=== PATIENT | male | born 1935 | race Caucasian/White ===

== ENCOUNTER 2017-11-12 10:45 | Inpatient (IN) | payer MEDICARE, MEDICAID, SELFPAY ==
[2017-11-12] VITALS (18 sets, daily range): BP systolic 106–129; BP diastolic 53–72; PULSE 91–124; RESP 12–89; TEMP 36.8–37.2; O2SAT 76–99; BMI 36.3; BMI 34.7; BMI 34.8
--- NOTE | 2017-11-12 10:56 | EKG12_ITS ---
Test Reason : SOB Blood Pressure : / mmHG Vent. Rate : 106 BPM Atrial Rate : 102 BPM P-R Int : 000 ms QRS Dur : 166 ms QT Int : 382 ms P-R-T Axes : 000 -27 096 degrees QTc Int : 507 ms Atrial fibrillation Left bundle branch block Abnormal ECG Confirmed by GARY GUTIERREZ, KRANTHI ([id number]), film editor JACKSON PAULA ([id number]) on 11/14/2017 1:40:23 PM Referred By: RAJAN Confirmed By:KRANTHI VEGA MD
--- NOTE | 2017-11-12 11:15 | ED.VISSUMM ---
- ER Visit Summary Date of Service: 11/12/17 Chief Complaint: [] Cough shortness of breath for a few days low pulse ox at senior living History of Present Illness: The patient is a 82 M [] history of COPD on home O2 3 L despite using increasing home oxygen his pulse ox remained about 83% persistent cough wheezing he was brought to the emergency room by EMS the patient reports just being generally tired harsh coughing he believes he did have a flu vaccination denies chest pain or abdominal pain or extremity pain he is DNR cc per the records from senior living Physical Examination: [] On a nonrebreather now his pulse ox is 96% he is awake and alert answering questions appropriately has diminished breath sounds with wheezing all areas the heart tones are distant abdomen is obese but soft upper lower extremities unremarkable he has 2-3+ edema bilaterally that is old he is moving all 4 extremities he states he has no specific complaints other than fatigue there is no signs of cardiopulmonary distress or failure, he is coughing up thick yellow mucus he will be sent for sputum culture Test Results: [] Emergency Department Course and Treatment: [] Any labs aerosols flu sputum Patient studies are generally unremarkable see those reports, however the chest x-ray shows congestive failure with right upper lobe infiltrate that per radiology is improved, his BNP is about 1000 troponin negative, there is no reported history for recent pneumonia he is not on antibiotics from [facility], On reevaluation he remains awake and alert there is no signs of cardiopulmonary arrest or failure I spoke with hospitalist they will be by to see him shortly for admission we have started IV antibiotics Treatment Plan: [] Disposition: [] Admit stable Impression: [] Right upper lobe pneumonia senior living acquired, congestive heart failure, hypoxia on room air, multiple medical problems see chart, DNR cc per senior living records This note was generated with [employer] dictation software. It may contain incorrect words, spelling, and punctuation that were not noted in review of the chart prior to signing ED Disposition - Plan for ED Patient: Chief Complaint: Shortness of Breath Referrals: Florentin Mancia MD [Primary Care Provider] -
[2017-11-12] MEDS: Ipratropium/Albuterol Sulfate 3 ML AMPUL.NEB INHALATION ×2 (11:35→19:45)
[2017-11-12 11:40] LABS: Absolute Neutrophil Count 4.6 X10^3/uL (2.0-7.7); Basophil# 0.02 X10^3/uL; Basophil% 0.3 % (0-1); Eosinophil# 0.05 X10^3/uL; Eosinophils% 0.8 % (0-5); Hematocrit 35.3 % (40-54); Hemoglobin 10.7 g/dl (13.0-16.5); Lymphocyte % 9.8 % (19-41); Mean Corp Hgb Conc 30.3 g/gl (32-36); Mean Corpuscular Hgb 27.9 pg (27.0-32.0); Mean Corpuscular Volume 92.2 fL (80-94); Mean Platelet Vol. 8.8 fl (6.2-12.0); Monocyte# 0.87 X10^3/uL; Monocyte% 14.1 % (0-10); Neutrophil # 4.56 X10^3/uL (2.7-7.7); Neutrophil % 74.2 % (47-70); Platelet Count 158 K/mm3 (150-450); RBC Distribution Width CV 18.7 % (11.6-14.6); RBC Distribution Width SD 61.1 fl (35.1-43.9); Red Blood Count 3.83 M/mm3 (4.6-6.2); White Blood Count 6.2 K/mm3 (4.4-11.0)
[2017-11-12 11:44] LABS: Differential Indicated SCAN CRITERIA MET; POSITIVE COUNT NO; POSITIVE DIFFERENTIAL YES; POSITIVE MORPHOLOGY NO
[2017-11-12 11:47] LABS: Anion Gap 5 (5-15); BUN 38 mg/dL (7-18); BUN/Creat Ratio 21.6 RATIO (10-20); Calcium,Total 8.6 mg/dL (8.5-10.1); Chloride 100 mmol/L (98-107); Creatinine, Serum 1.76 mg/dL (0.70-1.30); EST Glomerular Filtration Rate 40 mL/min (>60); Est Glom Filt Rate - Afr Amer 48 mL/min (>60); Estimated Creatinine Clearance 40.01 ml/min; Glucose 119 mg/dL (70-110); Potassium 5.1 mmol/L (3.5-5.1); Sodium Level 139 mmol/L (136-145)
[2017-11-12 12:06] LABS: BNP,B-Type NATRIURETIC PEPTIDE 1045.7 pg/mL (0-100)
[2017-11-12] MEDS: Albuterol 2.5 MG/3 ML VIAL.NEB. INHALATION (12:15)
[2017-11-12] MEDS: Piperacil/Tazobactam 3.375 GM/50 ML ML IV (12:26)
--- NOTE | 2017-11-12 12:54 | RAD_ITS ---
STUDY: X-RAY CHEST REASON FOR EXAM: Male, 82 years old. Shortness of breath TECHNIQUE: Single AP portable view of the chest. COMPARISON: Chest x-ray on September 13, 2017 FINDINGS: EKG leads are in place There is a right upper lobe infiltrate. There is pulmonary vascular congestion. There is no demonstrated pleural abnormality. There is moderate cardiac enlargement. Status post sternotomy. Normal mediastinum and kurt. Normal visualized pulmonary arteries. There is atherosclerotic calcification of the aortic arch with tortuosity. Normal visualized thoracic spine. Normal visualized ribs, clavicles, and shoulders. There is no demonstrated abnormality of the visualized soft tissue structures of the upper abdomen. RAD/Chest 1 View (Portable) IMPRESSION: Improved pulmonary edema. Right upper lobe infiltrate is less residual edema. Stable cardiomegaly. Electronically Signed: Darryl Menjivar MD, FACR at 13:12 EST , Service support ,
--- NOTE | 2017-11-12 13:57 | HP.PCM_ITS ---
Problem List (1) CHF (congestive heart failure) Status: Acute (2) Pneumonia Status: Acute (3) Right femoral fracture Status: Acute Qualifiers: (4) Primary osteoarthritis of right hip Status: Acute (5) History of right hip hemiarthroplasty Status: Chronic (6) Heart failure with preserved ejection fraction Status: Acute (7) Hyponatremia Status: Chronic (8) COPD (chronic obstructive pulmonary disease) Status: Acute Qualifiers: (9) Chronic combined systolic and diastolic CHF (congestive heart failure) Status: Chronic (10) Benign hypertension Status: Chronic (11) Generalized osteoarthritis Status: Chronic (12) Tobacco dependence syndrome Status: Chronic History of Present Illness Date of Admission: 11/12/17 Chief Complaint: Shortness of breath, hypoxia This is an 82-year-old male with past medical history of diastolic heart failure , COPD, obstructive sleep apnea, status post bioprosthetic aortic valve replacement, paroxysmal atrial fibrillation who currently resides at a local [facility] , he is a DNR CC. He was brought to the emergency room by EMS due to progressive shortness of breath, cough and hypoxia. He has done well well recently until about 2 days ago when he started having shortness of breath and coughing up thick yellow mucus . He denied any fever or chills.He remained hypoxic in the low 80s despite supplemental oxygen per nasal cannula, he was placed on a nonrebreather in the emergency room his pulse oximetry went up to 96 %. Patient is alert and oriented to time place and person and answered questions appropriately. In the emergency room, his influenza A and B test are negative, his chest x-ray showed congestive failure pattern and a right upper lobe infiltrate , his BNP is ~ 1000,his troponin is within normal limits. He was felt to have pneumonia and he was given IV Vancomycin and Zosyn , he was also given IV Lasix for congestive heart failure. Past Medical History Past Medical History (Chronic Problems): Chronic Problems History of right hip hemiarthroplasty (Chronic) Hyponatremia (Chronic) Left bundle branch block (Chronic) Paroxysmal atrial fibrillation (Chronic) Status post aortic valve replacement with bioprosthetic valve (Chronic) Chronic combined systolic and diastolic CHF (congestive heart failure) (Chronic) Coronary artery disease (Chronic) Benign hypertension (Chronic) Generalized osteoarthritis (Chronic) Tobacco dependence syndrome (Chronic) Allergies varenicline [From Chantix] Allergy (Verified 11/12/17 10:45) Other Home Medications: Ambulatory Orders Medication Instructions Recorded Amiodarone HCl [Cordarone] 200 mg PO DAILY 09/05/14 Aspirin [Aspirin, Baby] 81 mg PO DAILY@0800 09/05/14 Finasteride [Proscar] 5 mg PO DAILY 09/05/14 Tamsulosin HCl [Flomax] 0.8 mg PO QHS 09/05/14 Mirtazapine [Remeron] 15 mg PO QHS 03/18/17 Montelukast [Singulair] 10 mg PO QHS 03/18/17 Ferrous Sulfate [Iron] 325 mg PO DAILY #30 tablet 06/14/17 Glucerna Shake 120 ml PO 4X/DAY 07/25/17 Mag Hydrox/Al Hydrox/Simeth 30 ml PO Q6H PRN PRN udc 07/25/17 [Mylanta II] Carvedilol [Coreg (Beta Neyda)] 3.125 mg PO BID tablet 08/02/17 Docusate Sodium [Colace] 200 mg PO BID PRN PRN capsule 08/02/17 Losartan Potassium [Cozaar] 25 mg PO DAILY tablet 08/02/17 Potassium Chloride [K-Dur] 40 meq PO BIDCM tablet 08/02/17 Ammonium Lactate [Amlactin] 57 gm TOPICAL BID 09/12/17 Atorvastatin Calcium 80 mg PO QHS 09/12/17 Polyethylene Glycol 3350 17 gm PO DAILY 09/12/17 Prednisone 10 mg PO DAILY 09/13/17 BusPIRone [Buspar] 5 mg PO BID 11/12/17 Furosemide [Lasix] 80 mg PO BID@1000,1800 11/12/17 Pantoprazole Sodium [Protonix] 40 mg PO DAILY 11/12/17 Surgical History: appendectomy, pacemaker implantation, total knee arthroplasty , tonsillectomy, - - Aortic valve replacement with bioprosthetic valve. PCI and cardiac stenting. Psychiatric History: No pertinent psych hx Smoking Status: Former smoker - *Family History Maternal History Items: Hypertension Paternal History Items: No pertinent history Sibling History Items: Diabetes, Hypertension Review of Systems Comment: All Systems were reviewed with pertinent positives mentioned in the HPI above. VTE Information - Inpt Only VTE Present on Admission: No VTE Mechan Device Prophylaxis: SCD's VTE Pharm Prophylaxis ordered?: No - Physical Exam General: Alert, Oriented x3 Neck: Supple Lungs: No rales, Rales Cardiovascular: Normal S1, Normal S2 Abdomen: Bowel Sounds Present, Soft, Non Tender Extremities: Edema Neurological: Cranial nerves II-XII grossly intact, Motor Exam 5/5 strength throughout Psych/Mental Status: Normal Affect Vital Signs Temp Pulse Resp BP Pulse Ox 99.0 F 101 H 17 119/65 92 11/12/17 10:46 11/12/17 13:04 11/12/17 13:04 11/12/17 13:04 11/12/17 12:15 Oxygen Flow Rate 12 Oxygen Delivery Method Room Air Weight: 131.9 kg Body Mass Index (BMI) 36.3 Microbiology Past 72 Hours 11/12/17 11:40 Influenza Types A,B Direct FA (AI) - Final Mucosa - Nose Laboratory Tests Past 24 Hrs 11/12/17 11/12/17 11/12/17 11:11 11:11 11:11 WBC 6.2 RBC 3.83 L Hgb 10.7 L Hct 35.3 L MCV 92.2 MCH 27.9 MCHC 30.3 L RDW 18.7 H RDW Differential 61.1 H Plt Count 158 MPV 8.8 Immature Gran % (Auto) 0.800 Neut % (Auto) 74.2 H Lymph % (Auto) 9.8 L Crisp % (Auto) 14.1 H Eos % (Auto) 0.8 Baso % (Auto) 0.3 Absolute Neuts (auto) 4.6 Absolute Lymphs (auto) 0.60 L Total Counted Not Reportable Sodium 139 Potassium 5.1 Chloride 100 Carbon Dioxide 34.0 H Anion Gap 5 BUN 38 H Creatinine 1.76 H Estim Creat Clear Calc 40.01 Est GFR (MDRD) Af Amer 48 L Est GFR (MDRD) Non-Af 40 L BUN/Creatinine Ratio 21.6 H Glucose 119 H Calcium 8.6 Troponin I 0.05 B-Natriuretic Peptide 1045.7 H Assessment/Plan 1. Acute on chronic respiratory failure with hypoxia ; we will continue on supplemental oxygen per NC while he is awake and we will place him on BiPAP at at bedtime. 2. Presumptive healthcare associated pneumonia; the patient was initiated on IV vancomycin and Zosyn in the ED which we would continue. 3. acute Diastolic heart failure; will place him on IV Lasix. 4. Paroxysmal atrial fibrillation ; he remains in sinus rhythm, he is on Amiodarone. He is not on long-term anticoagulation due to falls. A decision was made to discontinue his anticoagulation about ~ 4months ago. 5. COPD exacerbation without acute exacerbation; continue on his bronchodilators as they are. 6. Status post bioprosthetic aortic valve replacement; his most recent echocardiogram showed a normal valve anatomy and function.. Code Visit Inpatient E&M: [id number] Init Hosp L3
[2017-11-12] MEDS: Furosemide 20 MG/2 ML VIAL IV (14:28)
[2017-11-12] MEDS: Menthol/Lanolin/Calamine/Znox 113 GM Tube 1 APPLIC TOPICAL (22:35)
[2017-11-12] MEDS: 0.9% NaCl Peripheral Flush Adult/Peds IV (22:37)
[2017-11-12] MEDS: Furosemide 40 MG/4 ML Vial IV (22:37)
[2017-11-13] VITALS (26 sets, daily range): BP systolic 80–126; BP diastolic 48–60; PULSE 107–122; RESP 12–30; TEMP 36.5–37.3; O2SAT 85–97
[2017-11-13] MEDS: Ipratropium/Albuterol Sulfate 3 ML AMPUL.NEB INHALATION ×2 (01:09→07:08)
--- NOTE | 2017-11-13 03:15 | CPS ---
pt returning low volumes and desaturations into the mid 80's on 70% FiO2. Oxygen increased to 100% to maintain an SpO2 of 90%. Pts breath sounds were diminished previously and now sounding very coarse. RN notified and ABG was recommended by [employer]. DR. Lowry paged and ABG and Lasix order were received. Blood gas showed critical results and PAP pressures and RR were increased per Dr. Lowry. IPAP increased to 26 and EPAP increased to 10 for larger pressure support. RR increased to 16. Repeat ABG in one hour per DR. Lowry.
[2017-11-13] MEDS: Furosemide 40 MG/4 ML Vial IV (03:37)
--- NOTE | 2017-11-13 05:21 | NURSING ---
This RN called Pt's daughter (POBalwinder) Chyna at this time to inform her of Pt's changes overnight. This RN advised to Chyna that she might like to come in to be with her father if Pt declines further. This RN asked Chyna if she would like to us to contact anyone else in the family. Chyna said she would call her brother.
[2017-11-13 05:41] LABS: Allen Test POS; Base Excess 8 mmol/L (-2 to +2); Bicarbonate 35.8 mmol/L (22-26); Blood Gas Specimen Type ART; EPAP 10; FI02 80; IPAP 26; PO2 75 mmHG (75-100); RR 16; SITE R Radial; SO2 90 % (95-99); Time Given 520; Total Carbon Dioxide 38 mmol/L; pCO2 90.1 mmHg (35-45); pH 7.21 (7.35-7.45)
[2017-11-13 06:29] LABS: Absolute Lymphocyte Count 0.39 X10^3/ul (0.83-4.51); Absolute Neutrophil Count 9.2 X10^3/uL (2.0-7.7); Basophil# 0.02 X10^3/uL; Basophil% 0.2 % (0-1); Hematocrit 40.2 % (40-54); Hemoglobin 11.8 g/dl (13.0-16.5); Lymphocyte # 0.39 X10^3/ul (4.0); Lymphocyte % 3.7 % (19-41); Mean Corp Hgb Conc 29.4 g/gl (32-36); Mean Corpuscular Hgb 27.8 pg (27.0-32.0); Mean Corpuscular Volume 94.8 fL (80-94); Mean Platelet Vol. 9.3 fl (6.2-12.0); Monocyte% 9.4 % (0-10); Neutrophil # 9.16 X10^3/uL (2.7-7.7); Neutrophil % 85.9 % (47-70); Platelet Count 158 K/mm3 (150-450); RBC Distribution Width CV 18.7 % (11.6-14.6); RBC Distribution Width SD 62.8 fl (35.1-43.9); Red Blood Count 4.24 M/mm3 (4.6-6.2); White Blood Count 10.7 K/mm3 (4.4-11.0)
[2017-11-13 06:34] LABS: Anion Gap 13 (5-15); BUN 45 mg/dL (7-18); BUN/Creat Ratio 23.1 RATIO (10-20); Calcium,Total 8.7 mg/dL (8.5-10.1); Chloride 97 mmol/L (98-107); Creatinine, Serum 1.95 mg/dL (0.70-1.30); Differential Indicated SCAN CRITERIA MET; EST Glomerular Filtration Rate 35 mL/min (>60); Est Glom Filt Rate - Afr Amer 43 mL/min (>60); Estimated Creatinine Clearance 36.11 ml/min; Glucose 140 mg/dL (70-110); POSITIVE COUNT NO; POSITIVE DIFFERENTIAL YES; POSITIVE MORPHOLOGY NO; Potassium 4.7 mmol/L (3.5-5.1); Sodium Level 140 mmol/L (136-145)
[2017-11-13 06:45] LABS: Anisocytosis 1+; Crenated RBC 1+; Ovalocyte RARE; Polychromasia RARE
--- NOTE | 2017-11-13 07:10 | CPS ---
Pt had sputum in BiPAP mask on arrival into room. Mask switched and sputum sample sent to lab at this time.
[2017-11-13 07:56] LABS: Allen Test POS; Blood Gas Specimen Type ART; EPAP 6; FI02 100; IPAP 12; PO2 82 mmHG (75-100); RR 12; SITE R Radial; Time Given 345; pCO2 > 130.0 mmHg (35-45); pH 7.04 (7.35-7.45)
[2017-11-13 08:51] LABS: Allen Test POS; Base Excess 9 mmol/L (-2 to +2); Bicarbonate 36.4 mmol/L (22-26); Blood Gas Specimen Type ART; EPAP 10; FI02 50; IPAP 26; PO2 69 mmHG (75-100); RR 16; SITE R Radial; SO2 89 % (95-99); Time Given 830; Total Carbon Dioxide 39 mmol/L; pCO2 82.2 mmHg (35-45); pH 7.26 (7.35-7.45)
[2017-11-13] MEDS: Ammonium Lactate 225 gm Bottle 1 APPLIC TOPICAL (09:27)
[2017-11-13] MEDS: Menthol/Lanolin/Calamine/Znox 113 GM Tube 1 APPLIC TOPICAL (09:27)
[2017-11-13] MEDS: 0.9% Normal Saline 1,000 ML 60 ML IV (10:06)
--- NOTE | 2017-11-13 10:28 | PCM.PN.HOSP ---
Subjective: This is an 82-year-old male with past medical history of diastolic heart failure, COPD, obstructive sleep apnea, status post bioprosthetic aortic valve replacement, paroxysmal atrial fibrillation who currently resides at a local [facility], he is a DNR CC. He was brought to the emergency room by EMS due to progressive shortness of breath, cough and hypoxia. He was found to have HCAP, acute respiratory failure with hypoxia and hypercarbia . He is quite obtunded, he is on BiPAP, family now requests hospice. Vitals/I&O's: Vital Signs Temp Pulse Resp BP Pulse Ox 98.9 F 115 H 18 99/49 L 95 11/13/17 09:24 11/13/17 09:24 11/13/17 09:24 11/13/17 09:24 11/13/17 09:24 Oxygen Flow Rate 6 Oxygen Delivery Method Bi-pap Weight: 127.9 kg Body Mass Index (BMI) 34.7 Intake and Output for Last 24 Hours 11/11/17 11/12/17 11/13/17 23:59 23:59 23:59 Intake Total 129.1 / 129.1 55 / 55 Balance 129.1 / 129.1 55 / 55 General: Alert, Oriented x3 HEENT: Atraumatic Neck: Supple, No JVD Lungs: Clear to auscultation Cardiovascular: Normal S1, Normal S2 Abdomen: Bowel Sounds Present, Soft, Non Tender Extremities: No clubbing Laboratory Results 11/13/17 03:50: Specimen Type ART, Sample Site R Radial, pH 7.04 L*, Bicarbonate Actual TNP, POC Total CO2 TNP, Base Excess TNP, O2 Saturation TNP, O2 % 100, ABG pCO2 > 130.0 H*, ABG pO2 82, Calderon Test POS, Respiration Rate 12, O2 Delivery Device Bi / C PAP, EPAP 6, IPAP 12, Blood Gas Notified Whom [facility] , Blood Gas Notified Time 345 11/13/17 05:31: Specimen Type ART, Sample Site R Radial, pH 7.21 L, Bicarbonate Actual 35.8 H, POC Total CO2 38, Base Excess 8 H, O2 Saturation 90 L, O2 % 80, ABG pCO2 90.1 H*, ABG pO2 75, Calderon Test POS, Respiration Rate 16, O2 Delivery Device Bi / C PAP, EPAP 10, IPAP 26, Blood Gas Notified Whom DAKOTA GUTIERREZ, Blood Gas Notified Time 520 11/13/17 05:40: Sodium 140, Potassium 4.7, Chloride 97 L, Carbon Dioxide 30.0, Anion Gap 13, BUN 45 H, Creatinine 1.95 H, Estim Creat Clear Calc 36.11, Est GFR (MDRD) Af Amer 43 L, Est GFR (MDRD) Non-Af 35 L, BUN/Creatinine Ratio 23.1 H, Glucose 140 H, Calcium 8.7 11/13/17 05:40: WBC 10.7, RBC 4.24 L, Hgb 11.8 L, Hct 40.2, MCV 94.8 H, MCH 27.8, MCHC 29.4 L, RDW 18.7 H, RDW Differential 62.8 H, Plt Count 158, MPV 9.3, Immature Gran % (Auto) 0.800, Neut % (Auto) 85.9 H, Lymph % (Auto) 3.7 L, [place] % (Auto) 9.4, Eos % (Auto) 0.0, Baso % (Auto) 0.2, Absolute Neuts (auto) 9.2 H, Absolute Lymphs (auto) 0.39 L, Total Counted Not Reportable, Differential Comment , RBC Morphology 1+, Polychromasia RARE, Anisocytosis 1+, Ovalocytes RARE 11/13/17 08:40: Specimen Type ART, Sample Site R Radial, pH 7.26 L, Bicarbonate Actual 36.4 H, POC Total CO2 39, Base Excess 9 H, O2 Saturation 89 L, O2 % 50, ABG pCO2 82.2 H*, ABG pO2 69 L, Calderon Test POS, Respiration Rate 16, O2 Delivery Device Bi / C PAP, EPAP 10, IPAP 26, Blood Gas Notified Whom DAKOTA GUTIERREZ, Blood Gas Notified Time 830 Current Medications Al Hydroxide/Mg Hydroxide (Mylanta Ii) 30 ml PO Q6H PRN PRN PRN Reason: Gastric Burning Albuterol/Ipratropium (Duoneb) 3 ml INHALATION Q6H.RT [facility] Last Admin: 11/13/17 07:08 Dose: 3 ml Amiodarone HCl (Cordarone) 200 mg PO DAILY [facility] Last Admin: 11/13/17 09:27 Dose: Not Given Aspirin (Aspirin, Baby) 81 mg PO DAILY@0800 [facility] Last Admin: 11/13/17 08:19 Dose: Not Given Atorvastatin Calcium (Lipitor) 80 mg PO QHS [facility] Last Admin: 11/12/17 22:36 Dose: Not Given Bisacodyl (Dulcolax) 10 mg PO DAILY PRN PRN PRN Reason: Constipation Buspirone HCl (Buspar) 5 mg PO BID [facility] Last Admin: 11/13/17 09:26 Dose: Not Given Calamine/Phenol (Calmoseptine Ointment) 1 applic TOPICAL BID [facility] PRN Reason: Protocol Last Admin: 11/13/17 09:27 Dose: 1 applic Carvedilol (Coreg) 3.125 mg PO BID [facility] Last Admin: 11/13/17 09:27 Dose: Not Given Docusate Sodium (Colace) 200 mg PO BID PRN PRN PRN Reason: Constipation [facility]ous S[facility]) [facility] Admin: 11/13/17 08:19 Dose: Not Given Finasteride (Proscar) 5 mg PO DAILY [facility] Last Admin: 11/13/17 09:28 Dose: Not Given Guaifenesin (Mucinex) 1,200 mg PO BID [facility] Last Admin: 11/13/17 09:28 Dose: Not Given Piperacillin Sod/Tazobactam (Sod 3.375 gm/ Sodium Chloride) 66.875 mls @ 16.719 mls/hr IV Q8H [facility] Last Admin: 11/13/17 10:26 Dose: 16.719 mls/hr Vancomycin HCl 1,500 mg/ (Dextrose) 530 mls @ 250 mls/hr IV Q24H [facility] Sodium Chloride () 1,000 mls @ 60 mls/hr IV .[id number] [facility] Last Admin: 11/13/17 10:06 Dose: 60 mls/hr Lactic Acid (Lac-Hydrin, Amlactin) 1 applic TOPICAL BID [facility] Last Admin: 11/13/17 09:27 Dose: 1 applicatio Losartan Potassium (Cozaar) 25 mg PO DAILY [facility] Last Admin: 11/13/17 09:27 Dose: Not Given Mirtazapine (Remeron) 15 mg PO QHS [facility] Last Admin: 11/12/17 22:36 Dose: Not Given Montelukast Sodium (Singulair) 10 mg PO QHS [facility] Last Admin: 11/12/17 22:37 Dose: Not Given Nutritional Formula (Lactose Free) (Glucerna Shake) 120 ml PO 4X/DAY [facility] Last Admin: 11/13/17 09:27 Dose: Not Given Ondansetron HCl (Zofran) 4 mg IV Q8H PRN PRN PRN Reason: Nausea Pantoprazole Sodium (Protonix) 40 mg PO DAILY [facility] Last Admin: 11/13/17 09:28 Dose: Not Given Polyethylene Glycol (Miralax) 17 gm PO DAILY [facility] Last Admin: 11/13/17 09:28 Dose: Not Given Potassium Chloride (K-Dur) 40 meq PO BIDCM [facility] Last Admin: 11/13/17 08:19 Dose: Not Given Pred[facility]Pred[facility]one) [facility] Last Admin: 11/13/17 08:19 Dose: Not Given Sodium Chloride () 5 - 30 ml IV UD PRN PRN Reason: SALINE FLUSH Last Admin: 11/12/17 22:37 Dose: 10 ml Tamsulosin HCl (Flomax) 0.8 mg PO QHS [facility] Last Admin: 11/12/17 22:36 Dose: Not Given Assessment/Plan 1. Acute on chronic respiratory failure with hypoxia/ hypercapnia ; he is currently on BiPAP, he is a DNR CC, family is requesting hospice at this timer, this is reasonable. 2. Presumptive healthcare associated pneumonia; the patient is on IV vancomycin and Zosyn . 3. EDDIE ; gentle IV fluids, avoid potential nephrotoxic medications.. 4. Paroxysmal atrial fibrillation ; he remains in sinus rhythm, he is on Amiodarone. He is not on long-term anticoagulation due to falls. A decision was made to discontinue his anticoagulation about ~ 4months ago. 5. COPD exacerbation without acute exacerbation; continue on his bronchodilators as they are. 6. Status post bioprosthetic aortic valve replacement; his most recent echocardiogram showed a normal valve anatomy and function. 7. chronic diastolic HF; will hold off on Lasix due to rising creatinine.
--- NOTE | 2017-11-13 10:36 | PN_ITS ---
Subjective: This is an 82-year-old male with past medical history of diastolic heart failure , COPD, obstructive sleep apnea, status post bioprosthetic aortic valve replacement, paroxysmal atrial fibrillation who currently resides at a local [facility] , he is a DNR CC. He was brought to the emergency room by EMS due to progressive shortness of breath, cough and hypoxia. He was found to have HCAP, acute respiratory failure with hypoxia and hypercarbia . He is quite obtunded , he is on BiPAP, family now requests hospice. Vitals/I&O's: Vital Signs Temp Pulse Resp BP Pulse Ox 98.9 F 115 H 18 99/49 L 95 11/13/17 09:24 11/13/17 09:24 11/13/17 09:24 11/13/17 09:24 11/13/17 09:24 Oxygen Flow Rate 6 Oxygen Delivery Method Bi-pap Weight: 127.9 kg Body Mass Index (BMI) 34.7 Intake and Output for Last 24 Hours 11/11/17 11/12/17 11/13/17 23:59 23:59 23:59 Intake Total 129.1 / 129.1 55 / 55 Balance 129.1 / 129.1 55 / 55 General: Alert, Oriented x3 HEENT: Atraumatic Neck: Supple, No JVD Lungs: Clear to auscultation Cardiovascular: Normal S1, Normal S2 Abdomen: Bowel Sounds Present, Soft, Non Tender Extremities: No clubbing Laboratory Results 11/13/17 03:50: Specimen Type ART, Sample Site R Radial, pH 7.04 L*, Bicarbonate Actual TNP, POC Total CO2 TNP, Base Excess TNP, O2 Saturation TNP, O2 % 100, ABG pCO2 > 130.0 H*, ABG pO2 82, Calderon Test POS, Respiration Rate 12, O2 Delivery Device Bi / C PAP, EPAP 6, IPAP 12, Blood Gas Notified Whom [facility] , Blood Gas Notified Time 345 11/13/17 05:31: Specimen Type ART, Sample Site R Radial, pH 7.21 L, Bicarbonate Actual 35.8 H, POC Total CO2 38, Base Excess 8 H, O2 Saturation 90 L, O2 % 80, ABG pCO2 90.1 H*, ABG pO2 75, Calderon Test POS, Respiration Rate 16, O2 Delivery Device Bi / C PAP, EPAP 10, IPAP 26, Blood Gas Notified Whom [facility]AK[facility] GUTIERRE[facility], Blood Gas Notified Time 520 11/13/17 05:40: Sodium 140, Potassium 4.7, Chloride 97 L, Carbon Dioxide 30.0, Anion Gap 13, BUN 45 H, Creatinine 1.95 H, Estim Creat Clear Calc 36.11, Est GFR (MDRD) Af Amer 43 L, Est GFR (MDRD) Non-Af 35 L, BUN/Creatinine Ratio 23.1 H , Glucose 140 H, Calcium 8.7 11/13/17 05:40: WBC 10.7, RBC 4.24 L, Hgb 11.8 L, Hct 40.2, MCV 94.8 H, MCH 27.8 , MCHC 29.4 L, RDW 18.7 H, RDW Differential 62.8 H, Plt Count 158, MPV 9.3, Immature Gran % (Auto) 0.800, Neut % (Auto) 85.9 H, Lymph % (Auto) 3.7 L, Will % (Auto) 9.4, Eos % (Auto) 0.0, Baso % (Auto) 0.2, Absolute Neuts (auto) 9.2 H, Absolute Lymphs (auto) 0.39 L, Total Counted Not Reportable, Differential Comment , RBC Morphology 1+, Polychromasia RARE, Anisocytosis 1+, Ovalocytes RARE 11/13/17 08:40: Specimen Type ART, Sample Site R Radial, pH 7.26 L, Bicarbonate Actual 36.4 H, POC Total CO2 39, Base Excess 9 H, O2 Saturation 89 L, O2 % 50, ABG pCO2 82.2 H*, ABG pO2 69 L, Calderon Test POS, Respiration Rate 16, O2 Delivery Device Bi / C PAP, EPAP 10, IPAP 26, Blood Gas Notified Whom [facility], Blood Gas Notified Time 830 Current Medications Al Hydroxide/Mg Hydroxide (Mylanta Ii) 30 ml PO Q6H PRN PRN PRN Reason: Gastric Burning Albuterol/Ipratropium (Duoneb) 3 ml INHALATION Q6H.RT [facility] Last Admin: 11/13/17 07:08 Dose: 3 ml Amiodarone HCl (Cordarone) 200 mg PO DAILY [facility] Last Admin: 11/13/17 09:27 Dose: Not Given Aspirin (Aspirin, Baby) 81 mg PO DAILY@0800 [facility] Last Admin: 11/13/17 08:19 Dose: Not Given Atorvastatin Calcium (Lipitor) 80 mg PO QHS [facility] Last Admin: 11/12/17 22:36 Dose: Not Given Bisacodyl (Dulcolax) 10 mg PO DAILY PRN PRN PRN Reason: Constipation Buspirone HCl (Buspar) 5 mg PO BID [facility] Last Admin: 11/13/17 09:26 Dose: Not Given Calamine/Phenol (Calmoseptine Ointment) 1 applic TOPICAL BID [facility] PRN Reason: Protocol Last Admin: 11/13/17 09:27 Dose: 1 applic Carvedilol (Coreg) 3.125 mg PO BID [facility] Last Admin: 11/13/17 09:27 Dose: Not Given Docusate Sodium (Colace) 200 mg PO BID PRN PRN PRN Reason: Constipation [facility]ous [facility] ([facility]ate) [facility] Last Admin: 11/13/17 08:19 Dose: Not Given Finasteride (Proscar) 5 mg PO DAILY [facility] Last Admin: 11/13/17 09:28 Dose: Not Given Guaifenesin (Mucinex) 1,200 mg PO BID [facility] Last Admin: 11/13/17 09:28 Dose: Not Given Piperacillin Sod/Tazobactam (Sod 3.375 gm/ Sodium Chloride) 66.875 mls @ 16.719 mls/hr IV Q8H [facility] Last Admin: 11/13/17 10:26 Dose: 16.719 mls/hr Vancomycin HCl 1,500 mg/ (Dextrose) 530 mls @ 250 mls/hr IV Q24H [facility] Sodium Chloride () 1,000 mls @ 60 mls/hr IV .[id number] [facility] Last Admin: 11/13/17 10:06 Dose: 60 mls/hr Lactic Acid (Lac-Hydrin, Amlactin) 1 applic TOPICAL BID [facility] Last Admin: 11/13/17 09:27 Dose: 1 applicatio Losartan Potassium (Cozaar) 25 mg PO DAILY [facility] Last Admin: 11/13/17 09:27 Dose: Not Given Mirtazapine (Remeron) 15 mg PO QHS [facility] Last Admin: 11/12/17 22:36 Dose: Not Given Montelukast Sodium (Singulair) 10 mg PO QHS [facility] Last Admin: 11/12/17 22:37 Dose: Not Given Nutritional Formula (Lactose Free) (Glucerna Shake) 120 ml PO 4X/DAY [facility] Last Admin: 11/13/17 09:27 Dose: Not Given Ondansetron HCl (Zofran) 4 mg IV Q8H PRN PRN PRN Reason: Nausea Pantoprazole Sodium (Protonix) 40 mg PO DAILY [facility] Last Admin: 11/13/17 09:28 Dose: Not Given Polyethylene Glycol (Miralax) 17 gm PO DAILY [facility] Last Admin: 11/13/17 09:28 Dose: Not Given Potassium Chloride (K-Dur) 40 meq PO BIDCM [facility] Last Admin: 11/13/17 08:19 Dose: Not Given Pred[facility]Pred[facility]one) [facility] Last Admin: 11/13/17 08:19 Dose: Not Given Sodium Chloride () 5 - 30 ml IV UD PRN PRN Reason: SALINE FLUSH Last Admin: 11/12/17 22:37 Dose: 10 ml Tamsulosin HCl (Flomax) 0.8 mg PO QHS [facility] Last Admin: 11/12/17 22:36 Dose: Not Given Assessment/Plan 1. Acute on chronic respiratory failure with hypoxia/ hypercapnia ; he is currently on BiPAP, he is a DNR CC, family is requesting hospice at this timer, this is reasonable. 2. Presumptive healthcare associated pneumonia; the patient is on IV vancomycin and Zosyn . 3. EDDIE ; gentle IV fluids, avoid potential nephrotoxic medications.. 4. Paroxysmal atrial fibrillation ; he remains in sinus rhythm, he is on Amiodarone. He is not on long-term anticoagulation due to falls. A decision was made to discontinue his anticoagulation about ~ 4months ago. 5. COPD exacerbation without acute exacerbation; continue on his bronchodilators as they are. 6. Status post bioprosthetic aortic valve replacement; his most recent echocardiogram showed a normal valve anatomy and function. 7. chronic diastolic HF; will hold off on Lasix due to rising creatinine.
--- NOTE | 2017-11-13 11:58 | DS.PCM_ITS ---
Discharge Date and Diagnosis Date of Admission: 11/12/17 Date of Discharge: 11/13/17 - Secondary Discharge Diagnosis Chronic Problems History of right hip hemiarthroplasty (Chronic) Hyponatremia (Chronic) Left bundle branch block (Chronic) Paroxysmal atrial fibrillation (Chronic) Status post aortic valve replacement with bioprosthetic valve (Chronic) Chronic combined systolic and diastolic CHF (congestive heart failure) (Chronic) Coronary artery disease (Chronic) Benign hypertension (Chronic) Generalized osteoarthritis (Chronic) Tobacco dependence syndrome (Chronic) Hospital Course and Treatment Operations: - - Right hip hemiarthroplasty. Summary of Care Provided: This is an 82-year-old male with past medical history of diastolic heart failure , COPD, obstructive sleep apnea, status post bioprosthetic aortic valve replacement, paroxysmal atrial fibrillation who currently resides at a local [facility] , he is a DNR CC. He was brought to the emergency room by EMS due to progressive shortness of breath, cough and hypoxia. He was found to have HCAP, acute respiratory failure with hypoxia and hypercarbia . He was started on intravenous antibiotics and placed on BiPAP but he is still remains obtunded. They requested hospice for comfort focused care, he was seen and evaluated by hospice nurse and will be discharged to inpatient hospice facility. Discharge Diet: No Restrictions Home Medications: Medications to take at Discharge Amiodarone HCl [Cordarone] 200 mg PO DAILY 09/05/14 Aspirin [Aspirin, Baby] 81 mg PO DAILY@0800 09/05/14 Finasteride [Proscar] 5 mg PO DAILY 09/05/14 Tamsulosin HCl [Flomax] 0.8 mg PO QHS 09/05/14 Mirtazapine [Remeron] 15 mg PO QHS 03/18/17 Montelukast [Singulair] 10 mg PO QHS 03/18/17 Ferrous Sulfate [Iron] 325 mg PO DAILY #30 tablet 06/14/17 Glucerna Shake 120 ml PO 4X/DAY 07/25/17 Mag Hydrox/Al Hydrox/Simeth [Mylanta II] 30 ml PO Q6H PRN PRN udc 07/25/17 Carvedilol [Coreg (Beta Neyda)] 3.125 mg PO BID tablet 08/02/17 Docusate Sodium [Colace] 200 mg PO BID PRN PRN capsule 08/02/17 Losartan Potassium [Cozaar] 25 mg PO DAILY tablet 08/02/17 Potassium Chloride [K-Dur] 40 meq PO BIDCM tablet 08/02/17 Ammonium Lactate [Amlactin] 57 gm TOPICAL BID 09/12/17 Atorvastatin Calcium 80 mg PO QHS 09/12/17 Polyethylene Glycol 3350 17 gm PO DAILY 09/12/17 Prednisone 10 mg PO DAILY 09/13/17 BusPIRone [Buspar] 5 mg PO BID 11/12/17 Furosemide [Lasix] 80 mg PO BID@1000,1800 11/12/17 Pantoprazole Sodium [Protonix] 40 mg PO DAILY 11/12/17 Primary Care Physician: Florentin Mancia MD [Primary Care Provider] - Disposition: Hospice Medical Facility Patient Condition:: Guarded Meaningful Use Info Meaningful Use Diagnoses (Choose all that apply): None applicable
--- NOTE | 2017-11-13 14:39 | NURSING ---
report called to Dayna MALDONADO at [facility]
== END 2017-11-13 14:55 | disposition hospice, inpatient (51) | DRG 177 ==
LOC: ED 11:55 → PCU 14:14
PROVIDERS: Admitting Provider Internal Medicine; Emergency Provider Emergency Medicine; Family Provider Family Medicine; PCP Family Medicine; Visit Provider Internal Medicine
DX: J15.6 Pneumonia due to other Gram-negative bacteria (principal); J96.21 Acute and chronic respiratory failure with hypoxia; N17.9 Acute kidney failure, unspecified; I50.33 Acute on chronic diastolic (congestive) heart failure; J44.0 Chronic obstructive pulmonary disease with (acute) lower respiratory infection; I48.0 Paroxysmal atrial fibrillation; I11.0 Hypertensive heart disease with heart failure; Z99.81 Dependence on supplemental oxygen; Z95.3 Presence of xenogenic heart valve; Z96.641 Presence of right artificial hip joint; I25.10 Atherosclerotic heart disease of native coronary artery without angina pectoris; G47.33 Obstructive sleep apnea (adult) (pediatric); Z66 Do not resuscitate; Z79.899 Other long term (current) drug therapy; Y95 Nosocomial condition; M15.9 Polyosteoarthritis, unspecified; I44.7 Left bundle-branch block, unspecified; F17.200 Nicotine dependence, unspecified, uncomplicated
CPT/HCPCS: 36415; 36600; 71045; 80048; 82803; 83880; 84484; 85025; 87040; 87070; 87205; 87804; 93005; 94002; 94003; 94640; 99285; J7030; J7050; P9047; A4216; J1940